=== PATIENT | female | born 1985 | race Caucasian/White ===

== ENCOUNTER 2022-03-24 18:12 | Emergency (ER) | payer MEDICAID ==
[~2022-03-24] VITALS: Ht 165.1 cm; Wt 59.0 kg
[2022-03-24] MEDS ORDERED: ACETAMINOPHEN 325MG TABLET PO ONE (19:00)
[2022-03-24] MEDS ORDERED: IBUPROFEN 600MG TABLET PO STA (21:23)
[2022-03-24] MEDS ORDERED: AZITHROMYCIN 500MG/250ML 250 ML IV ONE (21:30)
[2022-03-24] MEDS ORDERED: CEFTRIAXONE 1 G PREMIX 50 ML IV ONE (21:30)
[2022-03-24] MEDS ORDERED: IBUPROFEN 600MG TABLET PO NR (21:45)
[2022-03-24 21:51] LABS: BASOPHILS % 0.3 % (0.0-2.0); EOSINOPHILS % 0.1 % (0.0-5.0); HEMATOCRIT. 33.6 % (36.0-48.0); LYMPHOCYTES % 12.3 % (20.0-50.0); MEAN CORPUSCULAR VOLUME 82.3 fL (81.0-99.0); MEAN PLATELET VOLUME 7.8 fl (7.4-10.4); MONOCYTES % 7.6 % (2.0-8.0); NEUTROPHILS % 79.7 % (40.0-76.0); PLATELET 307 x1000/uL (130-400); RED BLOOD CELL COUNT 4.08 mill/uL (4.2-5.4); RED CELL DISTRIBUTION WIDTH 14.1 % (11.6-14.6)
[2022-03-24 21:58] LABS: CHLORIDE 101 mEq/L (98-107)
[2022-03-25 01:00] VITALS: BP 91/71
[2022-03-25] MEDS ORDERED: POTASSIUM CHLORIDE 20MEQ TABLET SR PO ONE (01:00)
== END 2022-03-25 01:15 | disposition home or self-care (01) ==
LOC: ER 18:12
DX: J06.9 Acute upper respiratory infection, unspecified (principal); E87.6 Hypokalemia; E11.9 Type 2 diabetes mellitus without complications; E78.00 Pure hypercholesterolemia, unspecified; Z20.822 Contact with and (suspected) exposure to COVID-19
CPT/HCPCS: 36415; 71045; 80053; 83605; 83615; 84145; 85025; 85384; 87040; 87426; 87804; 96365; 96368; 99284; J0456; J0696